=== PATIENT | male | born 1945 | race Caucasian/White ===

== ENCOUNTER 2017-01-31 10:19 | Day surgery (SDC) | payer MEDICARE, OTHER ==
[2017-01-31] MEDS ORDERED: PROPOFOL 10 MG/ML VIAL IV ONE (14:00)
[2017-01-31] MEDS ORDERED: LIDOCAINE 2% MDV (20MG/ML) 20ML VIAL IV ONE (14:00)
[2017-01-31] MEDS ORDERED: MIDAZOLAM HCL 2MG/2ML VIAL IV ONE (14:00)
--- NOTE | 2017-02-05 09:49 | Operative Note ---
DATE OF SURGERY: 01/31/2017 OPERATION: COLONOSCOPY with cold snare polypectomy x4. PREOPERATIVE DIAGNOSIS: Screening, average risk. POSTOPERATIVE DIAGNOSIS: Four sigmoid colon polyps, status post cold snare polyp removal. ESTIMATED BLOOD LOSS: Minimal. PREPARATION QUALITY: Good. SPECIMENS: Sigmoid polyps x4. PROCEDURE: After informed consent was obtained from the patient, he was placed in the left lateral decubitus position in the endoscopy suite, sedated and monitored by the department of anesthesia. Digital rectal exam was unremarkable. A well-lubricated [id number] colonoscope was inserted into the rectum and advanced to the cecum. Preparation quality was good. The ileocecal valve, appendiceal orifice, cecum, ascending colon, transverse colon, and descending colon were free of inflammatory changes, mass lesions, or polyps. There were 4 sessile polyps approximately 3-5 mm in diameter and all removed with a cold snare with minimal bleeding noted. The polyps were retrieved without difficulty. Minimal bleeding was noted. The rectum was unremarkable in forward as well as J-turn views. The endoscope was straightened, the rectal ampulla deflated, and the endoscope was removed. RECOMMENDATIONS: We will await the results of tissue histology. The patient will require repeat exam in 3 to 5 to 10 years pending tissue results. As always, thank you for allowing me to participate in the healthcare of your patients. CC: ARAMIS Seth
== END 2017-01-31 12:50 | disposition home or self-care (01) ==
LOC: HOP 10:19
PROVIDERS: ATTEND Internal Medicine Gastroenterology
DX: Z12.11 Encounter for screening for malignant neoplasm of colon (principal); D12.5 Benign neoplasm of sigmoid colon; E78.00 Pure hypercholesterolemia, unspecified

== ENCOUNTER 2018-05-06 13:43 | Emergency (ER) | payer MEDICARE, OTHER ==
--- NOTE | 2018-05-06 13:55 | Emergency Department Record ---
History of Present Illness - General Chief complaint: Flank Pain Stated complaint: RT FLANK PAIN Time Seen by Provider: 05/06/18 13:54 Source: Patient Mode of Arrival: Ambulatory Limitations: No limitations - History of Present Illness Initial comments: The patient is here due to a 6 hour hx of sharp R flank pain. The onset was sudden and the pain does intermittently radiate to the R groin. He was nauseated earlier but did not vomit. The patient did have a kidney stone in the past similar to this. He denies any recent illnesses or injuries. MD Complaint: Other Onset/Timin -: Hour(s) Location: Right flank Radiation: Suprapubic Severity scale (1-10): 4 Quality: Dull Consistency: Constant Reports: Denies other symptoms - Related Data Previous Rx's Medication Instructions Recorded Hydrocodone/Acetaminophen [Neely 1 each PO QID #12 tablet 05/06/18 5-325 Tablet] Tamsulosin HCl [Flomax] 0.4 mg PO DAILY #7 cap.er.24h 05/06/18 Allergies Allergy/AdvReac Type Severity Reaction Status Date / Time No Known Drug Allergies Allergy Unverified 12/10/17 08:00 Travel Screening - Travel/Exposure Within Last 30 Days Have you traveled within the last 30 days?: No - Travel/Exposure Within Last Year Have you traveled outside the [place] in the last year?: No - Additonal Travel Details Have you been exposed to anyone with a communicable illness?: No - Travel Symptoms Symptom Screening: None Review of Systems Constitutional: Denies: Chills, Fever Eyes: Denies: Eye discharge ENT: Denies: Congestion Respiratory: Denies: Cough, Dyspnea Cardiovascular: Denies: Arrhythmia Endocrine: Denies: Fatigue Gastrointestinal: Reports: Abdominal pain, Nausea Genitourinary: Denies: Dysuria Musculoskeletal: Denies: Arthralgia Skin: Denies: Bruising Past Medical History - SOCIAL HISTORY Smoking Status: Former smoker Alcohol Use: Rare Drug Use: None - RESPIRATORY Hx Respiratory Disorders: Yes Hx COPD: Yes Hx Pneumonia: Yes - CARDIOVASCULAR Hx Cardio Disorders: No Comment:: HIGH CHOLESTEROL - NEURO Hx Neuro Disorders: No - GI Hx GI Disorders: Yes Hx of Polyps: Yes - Hx Genitourinary Disorders: Yes Hx Kidney Stones: Yes - ENDOCRINE Hx Endocrine Disorders: No - MUSCULOSKELETAL Hx Musculoskeletal Disorders: Yes Hx Arthritis: Yes - PSYCH Hx Psych Problems: No - HEMATOLOGY/ONCOLOGY Hx Hematology/Oncology Disorders: No Family Medical History Any Significant Family History?: No Hx Cancer: Father, Mother Physical Exam - General General Appearance: Alert, Oriented x3, Cooperative, No acute distress - Head Head exam: Atraumatic, Normocephalic, Normal inspection - Eye Eye exam: Normal appearance, PERRL, EOMI - Neck Neck exam: Normal inspection, Full ROM. negative: Tenderness - Respiratory Respiratory exam: Normal lung sounds bilaterally. negative: Respiratory distress - Cardiovascular Cardiovascular Exam: Regular rate, Normal rhythm, Normal heart sounds - GI/Abdominal GI/Abdominal exam: Soft, Normal bowel sounds. negative: Distended, Guarding, Rebound, Rigid, Tenderness - Extremities Extremities exam: Normal inspection, Full ROM, Normal capillary refill. negative: Tenderness - Back Back exam: Reports: Normal inspection, Full ROM. Denies: Muscle spasm, Rash noted, Tenderness - Neurological Neurological exam: Alert, Normal gait. negative: Abnormal gait, Motor sensory deficit - Psychiatric Psychiatric exam: negative: Anxious Course Vital Signs 05/06/18 13:45 Temperature 97.7 F Pulse Rate 83 Respiratory 16 Rate Blood Pressure 143/75 Pulse Ox 100 - Reevaluation(s) Reevaluation #1: The patient is doing a lot better at this time. His pain has resolved and he feels 100% improved. I did discuss the lab and CT results with the patient and the need for F/U. He understands the need to return for any worsening symptoms. 05/06/18 15:02 Medical Decision Making - Data Complexity MDM Data: Labs Ordered and/or Reviewed, X-Ray Ordered and/or Reviewed - Lab Data Result diagrams: 05/06/18 14:02 05/06/18 14:02 - Radiology Data Radiology results: Report reviewed (CT: 6 mm R UVJ stone with mod hydro.) Disposition Disposition: Discharge Clinical Impression: Ureteral stone with hydronephrosis Disposition: Home, Self-Care Condition: (2) Stable Instructions: Renal Colic (ED) Additional Instructions: Please take Motrin or Advil 3 times a day and use the Neely if needed. Please take the Flomax also until the stone passes and strain your urine. Please see Dr. River in the [facility] or in [place]. Return to the ER for any worsening symptoms or any increased pain, fever, or vomiting. Prescriptions: Hydrocodone/Acetaminophen [Neely 5-325 Tablet] 1 each PO QID #12 tablet Tamsulosin HCl [Flomax] 0.4 mg PO DAILY #7 cap.er.24h Referrals: [facility] [Provider Group] CATALINA RIVER M.D. [MEDICAL DOCTOR] - Forms: Patient Portal Access Time of Disposition: 15:06 Quality - Quality Measures Quality Measures: N/A - Blood Pressure Screening View Details: Yes Does Patient Have Any of the Following: No Blood Pressure Classification: Normal BP Reading Systolic Measurement: 115 Diastolic Measurement: 71 Screening for High Blood Pressure: < Normal BP, F/U Not Required > [[id number]]
[2018-05-06] MEDS ORDERED: ONDANSETRON HCL IV 4 MG/2 ML VIAL IV ONE (13:58)
[2018-05-06] MEDS ORDERED: 0.9 % SODIUM CHLORIDE 1,000 ML BAG IV ONE (13:58)
[2018-05-06 14:09] LABS: BASO % 0.3 % (0-6); EOS % 3.1 % (0-6); GRAN % 65.2 % (47-80); HEMATOCRIT 44.2 % (42.0-52.0); HEMOGLOBIN 14.1 gm/dl (14.0-18.0); LYMPH % 19.4 % (16-45); MEAN CELL VOLUME 83.4 fl (81-97); MEAN CORPUSCULAR HEMOGLOBIN 26.6 pg (27-33); MEAN CORPUSCULAR HGB CONC 31.9 g/dl (32-36); MEAN PLATELET VOLUME 10.1 fl (7.4-10.4); PLATELET COUNT 266 K/uL (130-400); WHITE BLOOD COUNT W/O DIFF 7.4 K/uL (4.2-12.2)
[2018-05-06 14:12] LABS: URINE APPEARANCE CLEAR; URINE BILIRUBIN NEGATIVE (NEGATIVE); URINE COLOR YELLOW; URINE GLUCOSE (UA) NEGATIVE (NEGATIVE); URINE KETONE NEGATIVE (NEGATIVE); URINE LEUKOCYTE ESTERASE NEGATIVE (NEGATIVE); URINE NITRITE NEGATIVE (NEGATIVE); URINE PROTEIN NEGATIVE (NEGATIVE); URINE UROBILINOGEN 0.2 E.U./dL (0.20 - 1.00)
[2018-05-06 14:13] LABS: URINE BLOOD NEGATIVE (NEGATIVE)
[2018-05-06 14:24] LABS: BLOOD UREA NITROGEN 14 mg/dL (8-23); CREATININE 0.9 mg/dL (0.7-1.2); EST GLOMERULAR FILTRATION RATE > 60 mL/min
[2018-05-06 14:25] LABS: TOTAL PROTEIN 7.6 g/dL (6.6-8.7)
[2018-05-06 14:27] LABS: GLUCOSE,RANDOM 109 mg/dL (74-109)
[2018-05-06 14:29] LABS: ALT/SGPT 36 U/L (<41)
[2018-05-06 14:30] LABS: ALBUMIN 4.5 g/dL (4.0-5.0); ALKALINE PHOSPHATASE 53 U/L (40-129); AST/SGOT 30 U/L (10.0-50.0)
[2018-05-06 14:31] LABS: BILIRUBIN,DIRECT < 0.2 mg/dL (0-0.3)
[2018-05-06] MEDS ORDERED: KETOROLAC 30 MG/ML VIAL IVP ONE (14:39)
--- NOTE | 2018-05-08 13:01 | CT SCAN REPORT ---
EXAM: CT OF THE ABDOMEN AND PELVIS WITHOUT CONTRAST HISTORY: RIGHT LOWER QUADRANT PAIN. TECHNIQUE: Sequential axial images were obtained from the diaphragms through the ischiorectal fossa without intravenous or oral contrast administration. FINDINGS: There is a 6 mm obstructing calculus at the right ureteral vesicular junction. This produces moderate right hydronephrosis. No additional calculi are appreciated. There is a complex cyst in the mid pole of the right kidney. Lack of contrast limits evaluation. The visualized lung bases demonstrate minimal scar tissue in the left lung base. The nonopacified liver appears normal. The gallbladder, pancreas and spleen appear normal. The adrenal glands appear normal. The small bowel appears normal. The colon appears normal. The urinary bladder appears normal. there is degenerative change of the lumbosacral spine. IMPRESSION: 6 MM OBSTRUCTING CALCULUS AT THE RIGHT URETERAL VESICULAR JUNCTION. THIS PRODUCES MODERATE RIGHT HYDRONEPHROSIS. NO ADDITIONAL CALCULI ARE APPRECIATED. THERE IS A COMPLEX CYSTIC LESION IN THE MID POLE OF THE RIGHT KIDNEY MEASURING 2.5 CM. THIS IS INCOMPLETELY EVALUATED DUE TO LACK OF INTRAVENOUS CONTRAST ADMINISTRATION. JOB NUMBER: [id number] MTDD
== END 2018-05-06 15:16 | disposition home or self-care (01) ==
LOC: ER 13:43
DX: N13.2 Hydronephrosis with renal and ureteral calculous obstruction (principal); J44.9 Chronic obstructive pulmonary disease, unspecified; Z87.891 Personal history of nicotine dependence; Z87.442 Personal history of urinary calculi
CPT/HCPCS: 99284 ×2; 96374; 96375; 85025; 80076; 80048; 81003; 74176; J1885; J2405; J7030